=== PATIENT | male | born 1935 | race Caucasian/White ===

== ENCOUNTER 2019-01-26 17:13 | Emergency (ER) | payer MEDICARE, OTHER ==
[~2019-01-26] VITALS: Ht 172.7 cm; Wt 71.2 kg
--- OUTSIDE RECORDS SUMMARY | 2019-01-26 17:16 | XMS REPORT ---
Author Author [facility] Address Unknown Phone Unavailable Care Team Providers Care Formula Room Worker Name Role Phone Unavailable Unavailable Payers Payer Name Policy Type Policy Number Effective Date Expiration Date Problems This patient has no known problems. Allergies, Adverse Reactions, Alerts Allergy Name Allergy Type Status Severity Reaction(s) Onset Date Inactive Date Treating Clinician Comments No Known Allergies DA Active U 2017-11-10 00:00:00 Medications This patient has no known medications. Results Test Description Test Time Test Comments Text Results Atomic Results Result Comments GLUBED 2018-10-18 20:32:00 GLUBED (test code=GLUBED) 107 mg/dL 74-106 Performed by certified button cutting machine operator at [facility] HD W/O [id number] 18:20:00 FAX: Gopal Gr [phone] [place]: B St: ADM FAX: Cyrus Christian [phone] FAX: Salas Moss [phone] Name: JUAN MIGUEL LEWSI [facility] : 1935 Age/S: 83/M [address] [facility] Unit #: [id number] Loc: [place] [address] Phys: Cyrus Day MD Acct: [id number] Dis Date: Status: ADM IN PH ONE #: [phone] Exam Date: 10/16/2018 1746 FAX #: [phone] Reason: vbi EXAMS: CPT CODE: [id number] MR [place] HD W/O CONT 77554 HISTORY: Verte brobasilar insufficiency; dizziness TECHNIQUE: Three-dimensional t malia of flight cerebral MR angiography. Maximum intensity projection (MIP) images were generated on 3-D workstation. COMPARISON: None FINDINGS: Normal flow-related enhancement is observed within the bilateral internal carotid, anterior cerebral, and middle cer ebral arteries. Anterior communicating artery is patent. 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 Bilateral posterior communicating arter ies are not visualized. Normal flow related enhancement within the bilater al vertebral, basilar, and bilateral posterior cerebral arteries. 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 Luminal irregularity of the l eft superior cerebellar artery. IMPRESSION: S evere stenosis of the distal left P1 segment. Luminal irregularity of th e left superior cerebellar artery. 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 at 1820 Reported and signed by: Simran William D.O. CC: Gopal Tena MD; Cyrus Day M.D.; Salas Garrett Technologist: AYESHA SCHWARTZRT - MRI Trnflrd Date/Time/By: 10/16/2018 (1819) : By: [email or web address] Orig Print D/T: S: 05/2018 (1822) PAGE 1 Signed Repo rt - MRI BRAIN W/O [id number] 19:11:00 FAX: Gopal Gr [phone] [place]: St: ADM FAX: Salas Moss [phone] Name: JUAN MIGUEL LEWIS [facility] : 1935 Age/S: 83/M [address] [place] Unit #: [id number] Loc: V.2059 [place] [address] Phys: Gopal Tena MD Acct: [id number] Dis Date: Status: ADM IN PHONE #: [phone] Exam Date: 10/15/2018 182 FAX #: [phone] Reason: dizziness EXAMS: CPT CODE: [id number] MRI BRAIN W/O CONTRAST 43115 REASON FOR EXAM: dizziness Exam Order Date: 10/15/2018 7:48 AM Attending M.Sherlyn.: Gopal Tena MD P rocedure: - MRI BRAIN W/O CONTRAST Comparison: FIND INGS: Axial, sagittal, and coronal images of the head were obtained using T1, T2 weighted, inversion recovery, and gradient echo sequences. The dif fusion images are within normal limits without abnormal signal intensity t o suggest acute infarct. No IV gadolinium was given. The sag ittal images show normal pituitary, cerebellum, and brain stem. No evidenc e of suprasellar mass. The axial T2, inversion recovery, and gradi ent echo images show no evidence of intra or extra axial mass. The ventric les, cisterns, and sulci are unremarkable. No evidence of hemorrhage. Min imal patchy reticular white matter disease. The cerebellar p ontine angle area is within normal limits. There is no evidence of mass no derik. The axial T1 images show no evidence of mass. N o evidence of old infarct. The coronal images show normal optic chiasm. IMPRESSION: Unremarkable brain. Electr onically Signed by Lorena Parkinson on 10/15/2018 at 1911 Re ported and signed by: Lexx Parkinson M.D. PAGE 1 Isabelle d Report (CONTINUED) FAX: Gopal Gr [place]: St: ADM FAX: Salas Moss [phone] Name: JUAN MIGUEL LEWIS [facility] : 1935 Age/S: 83/M [address] Unit #: [id number] Loc: V.2059 [place] [address] Phys: Gopal Gupta MD Acct: [id number] Dis Date: Status: ADM IN PHONE #: Exam Date: 10/15/20181828 FAX #: [phone] Reason: dizziness EXAMS: CPT CODE: [id number] MRI BRAIN W/O CONTRAST 47401 <Continued> CC: Gopal Tena MD; Salas Garrett Technologist: Jose L Narvaez)(MR) Trnscrd Date/Time/By: 10/15/2018 (1910) : By: LakshmiVTL Orig Print D/T: S: 10/15/2018 (1913) PAGE 2 Signed Report LIPID PROFILE (CORONARY RISK)2018-10-15 11:08:00* Test Item Value Reference Range Comments TRIGLYCERIDES (test code=TRIG) 85 mg/dL 20-150 CHOLESTEROL (test code=CHOL) 132 mg/dL 0-200 CHOLESTEROL/HDL RATIO (test code=CHOLHDL) 2.0 RATIO 0-4.9 RISK ASSOCIATED WITH CHOL/HDL RATIOS: Risk Male Female1/2 AVERAGE 3.43 3.27AVERAGE 4.97 4.442X AVERAGE 9.55 7.053X AVERAGE 23.39 11.04 REFERENCE VALUE IS RELATED TO RISK LEVELS ASRECOMMENDED BY THE IBETH. HEART, LUNG, AND BLOOD INST. HDL CHOLESTEROL (test code=HDL) 47 mg/dL 40-60 LIPOPROTEIN LDL (test code=LDL) 73 mg/dL 100-129 Reference Interval: mg/dL mmol/L Optimal <100 <2.6Near/above optimal 100-129 2.6- 3.3Borderline High 130-159 3.4-4.1High 160-189 4.1-4.9Very High >=190 >=4.9=========This LDL result is a direct measurement.========= [id number] 01:40:00* Test Item Value Reference Range Comments TROPONIN-I (test code=TROPI) 0.047 ng/mL 0-0.045 RESULT VERIFIED BY REPEAT ANALYSIS COMMENTS TO SOFT SHOE DANCER: COLLECT 3 HOURS AFTER PREVIOUS [id number] 23:17:00* Test Item Value Reference Range Comments TROPONIN-I (test code=TROPI) 0.052 ng/mL 0-0.045 RESULT VERIFIED BY REPEAT ANALYSIS COMMENTS TO SOFT SHOE DANCER: COLLECT 3 HOURS AFTER PREVIOUS SAMPLEURINALYSIS [id number] 15:10:00* Test Item Value Reference Range Comments UA COLOR (test code=COLU) YELLOW YELLOW UA APPEARANCE (test code=APPU) CLEAR CLEAR UA GLUCOSE DIPSTICK (test code=DGLUU) NEGATIVE mg/dL NEGATIVE UA BILIRUBIN DIPSTICK (test code=BILU) NEGATIVE mg/dL NEGATIVE UA KETONE DIPSTICK (test code=KETU) NEGATIVE mg/dL NEGATIVE UA SPECIFIC GRAVITY (test code=SGU) 1.026 1.001-1.035 UA BLOOD DIPSTICK (test code=ABRAM) Negative mg/dL NEGATIVE UA PH DIPSTICK (test code=MARIANO) 6.0 5.0-8.0 UA PROTEIN DIPSTICK (test code=PROU) 10 (Trace) mg/dL NEGATIVE UA UROBILINIOGEN DIPSTICK (test code=URO) 2.0 (1+) mg/dL NEGATIVE UA NITRITE DIPSTICK (test code=SANTOS) NEGATIVE NEGATIVE UA LEUKOCYTE ESTERASE W REFLEX (test code=LEUUR) NEGATIVE Avery/uL NEGATIVE UA WBC (test code=WBCU) 0-5 per HPF 0-5 UA RBC (test code=RBCU) 0-2 #/HPF 0-5 UA EPITHELIAL CELLS (test code=EPIU) FEW per HPF FEW UA BACTERIA (test code=BACU) NONE SEEN #/HPF NONE UA MUCUS (test code=MUCU) FEW #/LPF FEW Urine Source? Clean Catch- XR CHEST 1 [id number] 14:02:00 FAX: Salas Moss [phone] [place]: St: REG FAX: Eileen Cunningham [phone] Name: DATJay JayJUAN MIGUEL [facility] : 1935 Age/S: 83/M [address] [facility] Unit #: [id number] Loc: [place] [address] Phys: Eileen Shields MD Acct: [id number] Dis Date: Status: REG ER PHONE #: [phone] Exam Date: 10/14/2018 1339 FAX #: [phone] Reason: WEAKNESS EXAMS: CPT CODE: [id number] XR CHEST 1 V 62916 HISTORY: Weakness. COMPARISON: February 28, 2015. No acute infiltrates, effusion or congestion is noted. Mild scarring and mild bullous changes. Suboptimal inspiration with dependent c hanges. The cardiac and mediastinal silhouette are within normal l imits. IMPRESSION: No acute infiltrates, eff usion or congestion. Electronically Signed by Lorena Lopez on 0 10/14/2018 at 1402 Reported and signed by: Osmin Lopez M.D. CC: Salas Garrett; Eileen Shields MD Technologist: Shaniqua Zarate(Latrice) Kathy rnscrd Date/Time/By: 10/14/2018 (1402) : By: [email or web address] Orig Print D/T: S: 10/14/2018 (5572) PAGE 1 Sign ed Report BASIC METABOLIC [id number] 13:57:00 * Test Item Value Reference Range Comments SODIUM (test code=NA) 143 mmol/L 136-145 POTASSIUM (test code=K) 4.4 mmol/L 3.5-5.1 CHLORIDE (test code=CL) 108.0 mmol/L 98-107 CARBON DIOXIDE (test code=CO2) 31.0 mmol/L 21-32 ANION GAP (test code=GAP) 8.4 10-20 GLUCOSE (test code=GLU) 93 mg/dL 74-106 BLOOD UREA NITROGEN (test code=BUN) 23 mg/dL 7-18 GLOMERULAR FILTRATION RATE (test code=GFR) 53 mL/min >=60 Estimated GFR by using Modified MDRD formula.Chronic kidney disease is defined as either kidney damageor GFR <60 mL/min/1.73 m2 for >3 months. CREATININE (test code=CREAT) 1.30 mg/dL 0.7-1.3 BUN/CREATININE RATIO (test code=BUN/CREA) 17.3 10-20 CALCIUM (test code=CA) 9.3 mg/dL 8.5-10.1 HEPATIC FUNCTION [id number] 13:57:00* Test Item Value Reference Range Comments TOTAL PROTEIN (test code=PROT) 7.1 gram/dL 6.4-8.2 ALBUMIN (test code=ALB) 3.6 g/dL 3.4-5.0 GLOBULIN (test code=GLOB) 3.5 gram/dL 2.7-4.2 ALBUMIN/GLOBULIN RATIO (test code=A/G) 1.0 0.75-1.50 BILIRUBIN TOTAL (test code=BILT) 0.60 mg/dL 0.0-1.0 BILIRUBIN DIRECT (test code=BILD) 0.16 mg/dL 0.0-0.20 SGOT/AST (test code=AST) 13 IUnit/L 15-37 SGPT/ALT (test code=ALT) 18 IUnit/L 12-78 ALKALINE PHOSPHATASE TOTAL (test code=ALKP) 84 IUnit/L 45-117 Note change in reference range due to change in reagent. [id number] 13:57:00* Test Item Value Reference Range Comments LIPASE (test code=LIP) 120 U/L 73.0-393.0 [id number] 13:57:00* Test Item Value Reference Range Comments MAGNESIUM (test code=MAG) 2.4 mg/dL 1.8-2.4 [id number] 13:57:00* Test Item Value Reference Range Comments TROPONIN-I (test code=TROPI) 0.060 ng/mL 0-0.045 Results called to [id number] by JERALD 10/14/18 1357Critical results verified and read back by Nurse? Y PROTHROMBIN [id number] 13:39:00* Test Item Value Reference Range Comments PROTHROMBIN TIME PATIENT (test code=PTP) 11.4 seconds 9.0-14.0 INTERNATIONAL NORMAL RATIO (test code=INR) 1.0 0.8-1.2 The therapeutic range for oral anticoagulant therapy formost indications is an international normalized ratio (INR)of between 2.0 and 3.0. The recommended therapeutic INRrange for various clinical situations is listed below: Clinical Situation INR range Pulmonary e mbolism treatment (2.0-3.0)Venous thrombosis treatmentVenous thrombosis prophylaxis (high risk surgery)Prevention of systemic embolism from: Acute myocardial infarction Valvular heart disease Atrial fibrillation Mechanical prosthetic heart valves (2.5-3.5) IS PATIENT ON ANTICOAGULANTS? NTHROMBOPLASTIN TIME [id number] 13:39:00* Test Item Value Reference Range Comments THROMBOPLASTIN TIME PARTIAL (test code=PTT) 30.2 seconds 25.0-36.5 IS PATIENT ON ANTICOAGULANTS? NBASIC METABOLIC [id number] 13:33:00* Test Item Value Reference Range Comments SODIUM (test code=NA) 143 mmol/L 136-145 POTASSIUM (test code=K) 4.4 mmol/L 3.5-5.1 CHLORIDE (test code=CL) 108.0 mmol/L 98-107 CARBON DIOXIDE (test code=CO2) mmol/L 21-32 ANION GAP (test code=GAP) 10-20 GLUCOSE (test code=GLU) mg/dL 74-106 BLOOD UREA NITROGEN (test code=BUN) mg/dL 7-18 GLOMERULAR FILTRATION RATE (test code=GFR) mL/min >=60 CREATININE (test code=CREAT) mg/dL 0.7-1.3 BUN/CREATININE RATIO (test code=BUN/CREA) 10-20 CALCIUM (test code=CA) mg/dL 8.5-10.1 HEPATIC FUNCTION [id number] 13:33:00* Test Item Value Reference Range Comments TOTAL PROTEIN (test code=PROT) gram/dL 6.4-8.2 ALBUMIN (test code=ALB) g/dL 3.4-5.0 GLOBULIN (test code=GLOB) gram/dL 2.7-4.2 ALBUMIN/GLOBULIN RATIO (test code=A/G) 0.75-1.50 BILIRUBIN TOTAL (test code=BILT) mg/dL 0.0-1.0 BILIRUBIN DIRECT (test code=BILD) mg/dL 0.0-0.20 SGOT/AST (test code=AST) IUnit/L 15-37 SGPT/ALT (test code=ALT) IUnit/L 12-78 ALKALINE PHOSPHATASE TOTAL (test code=ALKP) IUnit/L 45-117 [id number] 13:33:00* Test Item Value Reference Range Comments LIPASE (test code=LIP) U/L 73.0-393.0 [id number] 13:33:00* Test Item Value Reference Range Comments MAGNESIUM (test code=MAG) mg/dL 1.8-2.4 [id number] 13:33:00* Test Item Value Reference Range Comments TROPONIN-I (test code=TROPI) ng/mL 0-0.045 CBC W/O [id number] 13:30:00* Test Item Value Reference Range Comments WHITE BLOOD CELL (test code=WBC) 7.7 K/mm3 4.5-12.5 RED BLOOD CELL (test code=RBC) 4.77 mill/mm3 4.0-5.8 HEMOGLOBIN (test code=HGB) 14.5 gram/dL 13.0-17.5 HEMATOCRIT (test code=HCT) 44.6 % 42.0-52.0 MEAN CELL VOLUME (test code=MCV) 93.5 fL 80-98 MEAN CELL HGB (test code=MCH) 30.4 picogram 27.0-33.0 MEAN CELL HGB CONCETRATION (test code=MCHC) 32.5 gram/dL 33.0-36.0 RED CELL DISTRIBUTION WIDTH (test code=RDW) 13.7 % 11.6-16.2 PLATELET COUNT (test code=PLT) 196 K/mm3 150-450 MEAN PLATELET VOLUME (test code=MPV) 9.9 fL 6.7-11.0 CBC W/O [id number] 13:26:00* Test Item Value Reference Range Comments WHITE BLOOD CELL (test code=WBC) K/mm3 4.5-12.5 RED BLOOD CELL (test code=RBC) mill/mm3 4.0-5.8 HEMOGLOBIN (test code=HGB) 14.5 gram/dL 13.0-17.5 HEMATOCRIT (test code=HCT) 44.6 % 42.0-52.0 MEAN CELL VOLUME (test code=MCV) fL 80-98 MEAN CELL HGB (test code=MCH) picogram 27.0-33.0 MEAN CELL HGB CONCETRATION (test code=MCHC) gram/dL 33.0-36.0 RED CELL DISTRIBUTION WIDTH (test code=RDW) % 11.6-16.2 PLATELET COUNT (test code=PLT) K/mm3 150-450 MEAN PLATELET VOLUME (test code=MPV) fL 6.7-11.0 - CT HEAD/BRAIN W/O [id number] 13:21:00 Name: DEBBIEJUAN MIGUEL BOLDEN [facility] : 1935 Age/S: 83 / M [address] Unit #: [id number] Loc: [place] [address] Phys: Eileen Shields MD Acct: [id number] Dis Date: Status: REG ER PHONE #: [phone] Exam Date: 10/14/2018 1303 FAX #: [phone] Reason: headache, dizziness EXAMS: CPT CODE: [id number] CT HEAD/BRAIN W/O CONT 67795 HISTORY: Headaches. COMPARISON: MRI brain from April 17, [address] from June 13, 2013. CT brain without contrast: Automated exposure control. No acute intracranial bleeds or extra-axial collections are noted. No acute territorial vascular infarction is noted. The sulci, gyri, ventricles and subarachnoid spaces and the basilar cisterns are normal for patient's age. No herniation or hydrocephalus or midline shift is noted. Mild periventricular ischemic gliosis is noted. Age-appropriate atrophy is noted as well. Portions of the visualized paranasal sinuses demonstrated air-fluid level within the right maxillary sinus. No obvious bony calvarial defect is noted. Sclerosis of both mastoid air cells IMPRESSION: No acute intracranial bleeds or extra-axial collections. No acute ter ritorial vascular infarction. No herniation or hydrocephalus o r midline shift. Chronic white matter ischemic disease and at [facility] . at 1321 Reported and signed by: Osmin brody M.D. CC: Salas Garrett; Eileen Shields MD Tech nologist:Ion Fuller RT(R),(MR),(CT); CTDI: DLP: Trnscb Date/Ti me: 10/14/2018 (1321) [email or web address] Orig Print D/T: S: 2018 (8135) PAGE 1 Signed Report
[2019-01-26] MEDS ORDERED: ACETAMINOPHEN/CODEINE 300MG - 30MG TAB PO ONE (17:30)
--- NOTE | 2019-01-26 18:36 | Diagnostic Imaging Report ---
Exam: Rib series History: Pain Comparison: None. Findings: Nondisplaced right seventh rib fracture. No abnormal soft tissue calcification or soft tissue defect. Impression: Nondisplaced right seventh rib fracture Signed by: Dr. Efrain Allen M.D. on 01/26/2019 6:32 PM
== END 2019-01-26 19:11 | disposition home or self-care (01) ==
LOC: ER 17:13
DX: S22.31XA Fracture of one rib, right side, initial encounter for closed fracture (principal); W01.190A Fall on same level from slipping, tripping and stumbling with subsequent striking against furniture, initial encounter; Y92.003 Bedroom of unspecified non-institutional (private) residence as the place of occurrence of the external cause; I10 Essential (primary) hypertension; Z86.73 Personal history of transient ischemic attack (TIA), and cerebral infarction without residual deficits
CPT/HCPCS: 71101; 99283

== ENCOUNTER 2019-02-01 08:39 | Emergency (ER) | payer MEDICARE, OTHER ==
[~2019-02-01] VITALS: Ht 172.7 cm; Wt 71.2 kg
[2019-02-01] MEDS ORDERED: HYDROCODONE/APAP 7.5MG-325MG 1 EA TAB PO ONE (08:45)
--- NOTE | 2019-02-01 09:18 | Diagnostic Imaging Report ---
Chest, PA and lateral. History: Right rib pain. Comparison: Rib radiographs dated 01/26/2019. Discussion: There is redemonstration of a nondisplaced right seventh rib fracture. No new osseous abnormalities are identified. The heart is within normal limits of size. There is no focal consolidation, pleural effusion, or pneumothorax. IMPRESSION: Nondisplaced right seventh rib fracture. No new osseous abnormalities. Signed by: Fransisco Gonzales MD on 02/01/2019 9:15 AM
== END 2019-02-01 10:12 | disposition home or self-care (01) ==
LOC: ER 08:39
DX: S22.31XA Fracture of one rib, right side, initial encounter for closed fracture (principal); W06.XXXA Fall from bed, initial encounter; Y93.84 Activity, sleeping; Y92.003 Bedroom of unspecified non-institutional (private) residence as the place of occurrence of the external cause; I10 Essential (primary) hypertension; Z86.73 Personal history of transient ischemic attack (TIA), and cerebral infarction without residual deficits
CPT/HCPCS: 71046; 99283